=== PATIENT | female | born 1990 | race Caucasian/White ===

== ENCOUNTER 2017-06-24 13:21 | Outpatient (CLI) | END 2017-06-24 16:54 | disposition home or self-care (01) ==

== ENCOUNTER 2017-07-06 08:29 | Outpatient (CLI) | END 2017-07-06 10:50 | disposition home or self-care (01) ==

== ENCOUNTER 2017-09-13 09:41 | Outpatient (CLI) | END 2017-09-13 15:00 | disposition home or self-care (01) ==

== ENCOUNTER 2017-09-28 09:17 | Inpatient (IN) | END 2017-10-02 19:15 | disposition home or self-care (01) | DRG 766 ==